=== PATIENT | female | born 1995 | race Caucasian/White ===

== ENCOUNTER 2018-08-19 10:14 | Emergency (ER) | payer MEDICAID ==
[~2018-08-19] VITALS: Ht 170.2 cm; Wt 71.7 kg
[2018-08-19 10:27] VITALS: Ht 170.2 cm; Wt 71.7 kg
[2018-08-19 10:56] LABS: BASOPHIL % 0.4 % (0-2); PLATELET COUNT 280 x10^3mcL (130-400); RED CELL DISTRIBUTION WIDTH 12.7 % (11.5-14.5)
[2018-08-19 11:12] LABS: CALCIUM 9.1 mg/dL (8.5-10.1); CARBON DIOXIDE 27.8 mmol/L (21-32); CHLORIDE SERUM 103 mmol/L (98-107); CREATININE SERUM 0.8 mg/dL (0.6-1.0); GFR1 > 60 mL/min; GLUCOSE SERUM 99 mg/dL (74-106); POTASSIUM SERUM 3.5 mmol/L (3.5-5.1); SODIUM SERUM 142 mmol/L (136-145)
[2018-08-19 11:17] LABS: ALKALINE PHOSPHATASE 80 U/L (46-116); ALT/SGPT 22 U/L (14-59); AST/SGOT 13 U/L (15-37); BILIRUBIN TOTAL 1.9 mg/dL (0.20-1.00); TOTAL PROTEIN, SERUM 7.9 g/dL (6.4-8.2)
[2018-08-19 12:07] LABS: UA SPECIFIC GRAVITY 1.025 (1.005-1.035); microscopic required? YES; urine erythrocyte NEGATIVE (NEGATIVE)
[2018-08-19 12:17] LABS: AMPHETAMINE QUAL UR NONE DETECTED (See below)
[2018-08-19 12:58] LABS: CALCIUM 9.4 mg/dL (8.5-10.1); HDL CHOLESTEROL 39 mg/dL (40-60); LIPASE 52 IU/L (73-393); MAGNESIUM 1.8 mg/dL (1.8-2.4); T4(THYROXINE) 8.6 ug/dL (4.7-13.3)
[2018-08-19 12:59] LABS: CHOLESTEROL 122 mg/dL (<200)
[2018-08-19 13:25] VITALS: BP 106/60
== END 2018-08-19 13:25 | disposition home or self-care (01) ==
LOC: ED 10:14
PROVIDERS: Emergency Medicine
DX: R53.1 Weakness (principal); R55 Syncope and collapse; F12.10 Cannabis abuse, uncomplicated; F14.10 Cocaine abuse, uncomplicated; F17.210 Nicotine dependence, cigarettes, uncomplicated
CPT/HCPCS: 99406; G0480; J7030

== ENCOUNTER 2019-04-22 13:50 | Emergency (ER) | payer SELFPAY ==
[~2019-04-22] VITALS: Ht 167.6 cm; Wt 73.5 kg
[2019-04-22 14:05] VITALS: BP 103/77; Ht 167.6 cm; Wt 73.5 kg
== END 2019-04-22 15:05 | disposition home or self-care (01) ==
LOC: ED 13:50
DX: F41.9 Anxiety disorder, unspecified (principal); R10.9 Unspecified abdominal pain; R11.2 Nausea with vomiting, unspecified; R42 Dizziness and giddiness; F17.210 Nicotine dependence, cigarettes, uncomplicated
CPT/HCPCS: 99406

== ENCOUNTER 2019-05-22 12:10 | Emergency (ER) | payer SELFPAY ==
[~2019-05-22] VITALS: Ht 170.2 cm; Wt 71.7 kg
[2019-05-22 12:19] VITALS: Ht 170.2 cm; Wt 71.7 kg
[2019-05-22 13:40] VITALS: BP 121/71
== END 2019-05-22 13:40 | disposition home or self-care (01) ==
LOC: ED 12:10
DX: O26.891 Other specified pregnancy related conditions, first trimester (principal); R11.0 Nausea